=== PATIENT | male | born 2000 | race American Indian/Alaskan Native ===

== ENCOUNTER 2019-09-11 13:24 | Emergency (ER) | payer SELFPAY ==
[2019-09-11] MEDS ORDERED: ACETAMINOPHEN 500 MG TAB PO ONE (14:46)
--- NOTE | 2019-09-11 14:49 | Event Note ---
ED Screening Note Date of service: 09/11/19 Time: 14:47 ED Screening Note: 18 yo M presents to ED with 2 day hx of chest pain, cough, lower back pain, lower abdominal pain. Denies SOB. Reports fever. Pt reports he has previously been told that he has high blood pressure, but was never started on any medications. This initial assessment/diagnostic orders/clinical plan/treatment(s) is/are subject to change based on patients health status, clinical progression and re- assessment by fellow clinical providers in the ED. Further treatment and workup at subsequent clinical providers discretion. Patient/guardian urged not to elope from the ED as their condition may be serious if not clinically assessed and managed. Initial orders include: CXR UA
--- NOTE | 2019-09-11 15:06 | XRay Report ---
CHEST 2 VIEWS INDICATION / CLINICAL INFORMATION: cough, fever. COMPARISON: None available. FINDINGS: SUPPORT DEVICES: None. HEART / MEDIASTINUM: No significant abnormality. LUNGS / PLEURA: No significant pulmonary or pleural abnormality. No pneumothorax. ADDITIONAL FINDINGS: No significant additional findings. IMPRESSION: 1. No acute findings. Signer Name: Maurisio Mcgregor MD Signed: 09/11/2019 3:01 PM Workstation Name: [id number]
[2019-09-11 15:54] LABS: Bilirubin,Urine NEG (Negative); Blood,Urine SM (Negative); Color,Urine Yellow (Yellow); Mucus,Urine 3+ /HPF; Urobilinogen,Urine < 2.0 mg/dL (<2.0); WBC,Urine < 1.0 /HPF (0.0-6.0)
[2019-09-11] MEDS ORDERED: IBUPROFEN 800 MG TAB PO ONE (17:30)
[2019-09-11 17:36] VITALS: BP 166/86
--- NOTE | 2019-09-11 17:39 | Emergency Department Report ---
ED General Adult HPI - General Chief complaint: Chest Pain Stated complaint: BACK/CHEST PAIN Time Seen by Provider: 09/11/19 17:04 Source: patient Mode of arrival: Ambulatory Limitations: No Limitations - History of Present Illness Initial comments: 18-year-old male complaining of body pain including his back and chest nonproductive cough fever and chills symptoms started yesterday.. His been in contact with his girlfriend with similar symptoms. He denies nausea vomiting abdominal pain no diarrhea. -: Sudden Location: chest, back Severity scale (0 -10): 4 Quality: aching Consistency: constant Worsens with: none Associated Symptoms: denies other symptoms, chest pain, cough, fever/chills, malaise. denies: diaphoresis, loss of appetite, nausea/vomiting, rash, shortness of breath, syncope, weakness Treatments Prior to Arrival: none, other - Related Data Previous Rx's Medication Instructions Recorded Last Taken Type Ibuprofen [Motrin] 600 mg PO Q8H PRN #15 tablet 09/11/19 Unknown Rx Allergies Allergy/AdvReac Type Severity Reaction Status Date / Time No Known Allergies Allergy Verified 09/11/19 13:28 ED Review of Systems ROS: Stated complaint: BACK/CHEST PAIN Other details as noted in HPI Comment: All other systems reviewed and negative Constitutional: chills, fever, malaise Eyes: denies: eye pain ENT: denies: ear pain, throat pain Respiratory: cough. denies: shortness of breath, SOB with exertion, wheezing Cardiovascular: chest pain. denies: dyspnea on exertion, edema, syncope, paroxysmal nocturnal dyspnea Endocrine: denies: flushing Gastrointestinal: denies: abdominal pain, nausea, vomiting, diarrhea, constipation Genitourinary: denies: dysuria, hematuria Musculoskeletal: back pain. denies: joint swelling Skin: denies: rash, lesions Neurological: denies: weakness Psychiatric: denies: anxiety, depression Hematological/Lymphatic: denies: easy bleeding ED Past Medical Hx - Past Medical History Previous Medical History?: No - Surgical History Past Surgical History?: No - Social History Smoking Status: Former Smoker Substance Use Type: None - Medications Home Medications: Home Medications Medication Instructions Recorded Confirmed Last Taken Type Ibuprofen [Motrin] 600 mg PO Q8H PRN #15 tablet 09/11/19 Unknown Rx ED Physical Exam - General Limitations: No Limitations General appearance: alert, in no apparent distress - Head Head exam: Present: atraumatic, normal inspection - Eye Eye exam: Present: normal appearance. Absent: scleral icterus, conjunctival injection - ENT ENT exam: Present: normal exam, normal orophraynx, mucous membranes moist, TM's normal bilaterally - Neck Neck exam: Present: normal inspection, full ROM. Absent: tenderness, lymphadenopathy - Respiratory Respiratory exam: Present: normal lung sounds bilaterally, respiratory distress. Absent: wheezes, rales, rhonchi, stridor - Cardiovascular Cardiovascular Exam: Present: tachycardia, normal heart sounds - GI/Abdominal GI/Abdominal exam: Present: soft, normal bowel sounds. Absent: distended, tenderness, guarding, rebound, rigid - exam: Present: normal inspection - Extremities Exam Extremities exam: Present: normal inspection - Back Exam Back exam: Present: normal inspection. Absent: CVA tenderness (R), CVA tenderness (L) - Neurological Exam Neurological exam: Present: alert, oriented X3 - Psychiatric Psychiatric exam: Present: normal affect - Skin Skin exam: Present: warm, dry, intact, normal color. Absent: rash ED Course Vital Signs 09/11/19 09/11/19 14:43 17:35 Temperature 102.5 F H 98.8 F Pulse Rate 105 H 104 H Respiratory 24 16 Rate Blood Pressure 164/99 Blood Pressure 164/99 166/86 [Left] O2 Sat by Pulse 100 Oximetry Critical Care Time: No Critical care attestation.: If time is entered above; I have spent that time in minutes in the direct care of this critically ill patient, excluding procedure time. ED Disposition Clinical Impression: Acute viral syndrome, Flu-like symptoms Disposition: - TO HOME OR SELFCARE Is pt being admited?: No Does the pt Need Aspirin: No Condition: Stable Instructions: Viral Syndrome (ED) Additional Instructions: Rest increased oral hydration drink at least 6-8 glasses of water., Take Advil or tylenol for pain and fever. Follow up with your doctor or [facility] or Dr. Da Reynoso. Return for any worsening symptoms like shortness of breath, Fever for more than 3 days or inability to eat or drink The chest xray done today shows no acute findings The flu test was negative for FLU A & FLU B Your urine test show no sign of urine infection Follow up with your doctor or [facility] or Dr. Reynoso regarding your Blood pressure. Today your blood pressure is 164/99 which is not normal . Prescriptions: Ibuprofen [Motrin] 600 mg PO Q8H PRN #15 tablet PRN Reason: Pain Referrals: PRIMARY CARE, [Primary Care Provider] - 3-5 Days DA REYNOSO MD [Staff Physician] - 3-5 Days Time of Disposition: 18:30
== END 2019-09-11 18:38 | disposition home or self-care (01) ==
LOC: ED 13:24
DX: B34.9 Viral infection, unspecified (principal); Z87.891 Personal history of nicotine dependence; Z79.1 Long term (current) use of non-steroidal anti-inflammatories (NSAID)
CPT/HCPCS: 71046; 81001; 87400; 93005; 93010